=== PATIENT | female | born 1970 | race Caucasian/White ===

== ENCOUNTER 2020-04-10 20:43 | Emergency (ER) | payer BC ==
[~2020-04-10] VITALS: Ht 160 cm; Wt 99.8 kg
[2020-04-10] MEDS ORDERED: VENTOLIN HFA18 GM INH (21:17)
[2020-04-10] MEDS ORDERED: MONTELUKAST SOD10 MG PO (21:17)
[2020-04-10] MEDS ORDERED: ADVAIR 250-501 EACH INH (21:17)
[2020-04-10] MEDS ORDERED: ZYRTEC10 MG PO (21:18)
== END 2020-04-10 23:09 | disposition home or self-care (01) ==
LOC: ED 20:43
DX: S61.412A Laceration without foreign body of left hand, initial encounter (principal); W26.0XXA Contact with knife, initial encounter; I10 Essential (primary) hypertension; J45.909 Unspecified asthma, uncomplicated; Z88.0 Allergy status to penicillin; Z88.5 Allergy status to narcotic agent; Z79.899 Other long term (current) drug therapy
CPT/HCPCS: 12011; 90471; 90715; 99282-25

== ENCOUNTER 2021-09-19 14:46 | Emergency (ER) | payer BC ==
[~2021-09-19] VITALS: Ht 160 cm; Wt 95.1 kg
[~2021-09-19 14:46] MED LIST: ADVAIR 250-501 EACH INH; MONTELUKAST SOD10 MG PO; VENTOLIN HFA18 GM INH; ZYRTEC10 MG PO
--- OUTSIDE RECORDS SUMMARY | 2021-09-19 14:48 | XMS ---
PreManage Notification: ALFONSO JACK Security Parent Partner Events No recent Security Events currently on file CRITERIA MET - [facility] CARE PROVIDERS CONRADO SANTOS [facility]/[place]: Critical access hospital PHONE: [phone] MARGI VICTORAI [facility] Current PHONE: Unknown [facility] Current PHONE: Unknown Lilian has no Care Guidelines for this patient. Cong VISIT COUNT (12 MO.) 1 HOPE Banks TOTAL 1 NOTE: Visits indicate total known visits. ED/UCC VISIT TRACKING (12 MO.) 09/19/2021 14:46 [facility]OPE [facility] [place] TYPE: Emergency COMPLAINT: - BACK PAIN/ ABD PAIN INPATIENT VISIT TRACKING (12 MO.) No inpatient visits to display in this time frame [id number]
[2021-09-19] MEDS ORDERED: HYDROCHLOROTH12.5 M1 PO (17:11)
== END 2021-09-19 22:00 | disposition home or self-care (01) ==
LOC: ED 14:46
DX: M51.36 Other intervertebral disc degeneration, lumbar region (principal); R10.9 Unspecified abdominal pain; I10 Essential (primary) hypertension; J45.909 Unspecified asthma, uncomplicated; Z88.0 Allergy status to penicillin; Z88.5 Allergy status to narcotic agent; Z79.899 Other long term (current) drug therapy
CPT/HCPCS: 36415; 74177; 80053; 81001; 83690; 84703; 85025; 99284-25; A9270; J2405; Q9967

== ENCOUNTER 2022-12-30 07:03 | Day surgery (SDC) | payer BC ==
[2022-12-21 11:46] VITALS: BP 160/109
[~2022-12-30] VITALS: Ht 157.5 cm; Wt 94.0 kg
[~2022-12-30 07:03] MED LIST changes: +ESCITALOPRAM OX10 MG PO; +HYDROCHLOROTH12.5 M1 PO
[2022-12-30 07:25] VITALS: BP 149/87
--- NOTE | 2022-12-30 07:27 | NUR ---
IN ROOM. BOTH PT AND ADMIT TO NERVOUSNESS. EXERCISED MINISTRY OF PRESENCE PT TALKED OF HOW INJURY OCCURREC AND EXERCISE HAPBITS. PT AND CONSENTED TO PRAYER. PRAYED FOR SUCCESSFUL PROCEDURE AND ONGOING BLESSING.
[2022-12-30] MEDS ORDERED: PHENTERMINE H37.5 MG PO (07:28)
[2022-12-30] MEDS ORDERED: CELECOXIB200 MG PO (09:20)
[2022-12-30] MEDS ORDERED: HYDROCODON-ACE1 EA10 PO (09:21)
--- NOTE | 2022-12-30 09:25 | NUR ---
12/30/22 0925 Shanta Dawson 0920 PT TO PACU AWAKE AND TALKING. DENIES PAIN AND NAUSEA.
--- NOTE | 2022-12-30 09:54 | NUR ---
LILIANA 0950: PT IS BACK TO DS FROM PACU. SHE IS AT HER BASELINE PRIOR TO SURGERY. IS AT THE BEDSIDE. CALL LIGHT WTIHIN REACH. WATER ON BEDSIDE TABLE, SHE HAS BEEN SIPPING ON WATER SINCE PACU. SHE WOULD LIKE A BANANA. NO ADDITIONAL NEEDS OR CONCERNS. DC CRITERIA IS REVIEWED WITH PT AND PATEL.
--- NOTE | 2022-12-30 10:17 | OR ---
[facility] [address], [place] [address] Signed DATE OF OPERATION: 12/30/2022 SURGEON: Alayna Dawson MD PREOPERATIVE DIAGNOSIS: Medial meniscus tear, left knee. POSTOPERATIVE DIAGNOSIS: Medial meniscus tear, left knee. PROCEDURE PERFORMED: Left knee arthroscopy with partial medial meniscectomy and debridement of chondral tear surface. POLICE LIEUTENANT PATROL: None. ANESTHESIA: General. BLOOD LOSS: Minimal. BRIEF HISTORY: Alfonso is a 52-year-old female with progressive worsening of pain and catching in her knee. MRI was consistent with the above. Risks and benefits of operative treatment were discussed with her and she elected to proceed. Once consent was obtained, she was taken to the operating room. After adequate anesthesia, she was placed on the operating room bed. The right leg was flexed, abducted and externally rotated on a well-padded leg chandler. The left was placed in well-padded proximal thigh leg chandler with no tourniquet. The leg was prepped and draped in a standard sterile fashion. The portal sites were injected with 0.25% Marcaine with epinephrine. Standard inferior and superolateral portals were established and the scope was introduced in the knee. ARTHROSCOPIC FINDINGS: Moderate synovitis was noted throughout the knee. The patellofemoral joint was intact. Medial and lateral gutters were clear. The ACL was intact. Lateral compartment was completely normal. 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 Grade 2 changes to the tibial side. There was a radial tear posteriorly. Electronically Signed By: ALAYNA DAWSON MD 12/30/22 1017 PATIENT NAME: ALFONSO JACK OPERATIVE REPORT DATE OF : 70 REPORT #: [id number] PHYSICIAN: ALAYNA DAWSON MD PCP: RICCARDO MANLEY MD REPORT IS CONFIDENTIAL AND NOT TO BE RELEASED WITHOUT AUTHORIZATION [facility] [address], [place] [address] Signed DESCRIPTION OF OPERATION: Standard inferomedial portal was established using spinal needle for localization. The straight biter was then used to trim the posterior tear and feather it out. This was then smoothed using shaver and all debris was evacuated. The chondral flaps on the medial femoral condyle were then removed using the shaver. The debris was again evacuated and the scope was withdrawn. Portals were closed with 3-0 nylon. The knee was injected with 60 mg of Toradol at the end of the procedure. The wounds were closed with 3-0 nylon, dressed with Adaptic, ABD and Charles wrap. She tolerated the procedure well. All sponge, needle, and instrument counts were correct. Alayna Dawson MD BA/INO /[id number] Copies: ~ Electronically Signed By: ALAYNA DAWSON MD 12/30/22 1017 PATIENT NAME: ALFONSO JACK OPERATIVE REPORT DATE OF : 70 REPORT #: [id number] PHYSICIAN: ALAYNA DAWSON MD PCP: RICCARDO MANLYE MD REPORT IS CONFIDENTIAL AND NOT TO BE RELEASED WITHOUT AUTHORIZATION
[2022-12-30 11:02] VITALS: BP 102/64
--- NOTE | 2022-12-30 11:04 | NUR ---
PT REPORTS THAT SHE IS FEELING BETTER, JUST SLEEPY. SHE IS TOLERATING WATER AND BANANA. SHE DENIES PAIN, JUST FEELS PRESSURE IN THAT LEFT KNEE. SHE STATES THAT SHE WOULD LIKE TO GO HOME AND SLEEP. SHE IS EDUCATED THAT ALL SHE HAS LEFT TO DO IS TO URINATE. SHE REPORTS THAT SHE FEELS LIKE SHE COULD GO.
--- NOTE | 2022-12-30 11:33 | NUR ---
LE 1105: PT IS UP OOB WITH STANDBY ASSIST TO USE THE RESTROOM. SHE IS ABLE TO AMBULATE HERSELF TO THE BATHROOM WHERE SHE VOIDS 100MLS OF URINE. LE 1110: SHE AMBULATES HERSELF BACK TO HER ROOM. SHE IS INDCATES THAT SHE REALLY WANTS TO GO HOME SO SHE CAN GO TO SLEEP. SHE IS EDUCATED ON HOW TO BEST DRESS HERSELF AND TO OPEN HER CURTAIN WHEN SHE IS READY. LE 1120: PT REPORTS THAT SHE IS FEELING NAUSEATED. SHE IS ASKED IF SHE WOULD LIKE TO LAY DOWN AND REST HERE FOR A LITTLE BIT LONGER, SHE ADMANTLY STATES SHE WANTS TO GO HOME AND THAT SHE HAS ANTINAUSEA MEDICATION AT HOME. SHE IS SENT HOME WITH AN EMESIS BAG. SHE AND HER ARE GIVEN WRITTEN AND VERBAL DC INSTRUCTIONS. THEY BOTH VERBALIZE UNDERSTANDING. QUESTIOS ARE ASKED AND ANSWERED. PT IS TAKEN TO PERSONAL VEHICLE VIA , WHERE SHE TRANSFERS HERSELF WITHOUT ISSUES.
== END 2022-12-30 11:25 | disposition home or self-care (01) ==
LOC: DS 07:03
PROVIDERS: ATTEND Specialist
PROC: 0SQD4ZZ Repair Left Knee Joint, Percutaneous Endoscopic Approach (ICD-10-PCS; principal; 2022-12-30 08:15)
DX: S83.242A Other tear of medial meniscus, current injury, left knee, initial encounter (principal); Z88.5 Allergy status to narcotic agent; Z88.0 Allergy status to penicillin; J45.909 Unspecified asthma, uncomplicated; I10 Essential (primary) hypertension
CPT/HCPCS: 01400; J0131; J0690; J1100; J1885; J2001; J2405; J2704; J3010; J3490; J7121

== ENCOUNTER 2023-08-07 09:08 | Day surgery (SDC) | payer BC ==
[2023-08-01 12:46] VITALS: BP 146/99
[~2023-08-07] VITALS: Ht 157.5 cm; Wt 100.0 kg
[~2023-08-07 09:08] MED LIST changes: +BIOTIN10000 MC1 PO; +CEFAZOLIN SODIUM 2 GM/20 ML SYR IV SCH; +CELECOXIB200 MG PO; +GABAPENTIN 600 MG TAB PO SCH; +HYDROCODON-ACE1 EA10 PO; +IBLOOD GLUCOSE TEST STRIP 1 EA TEST VI PRN; +INTRA-ARTICULAR ANALGESIC INJECTION XX SCH; +IRON325 M1 PO; +K-TAB ER20 MEQ PO; +LACTATED RINGER'S 1,000 ML IV SCH; +LIDOCAINE HCL 1% 5 ML SDV INJ ONE; +MULTIVITAMIN1 EACH PO; +NEPHPLEX RX TA1 EACH PO; +OXYCODONE HCL 5 MG TAB PO SCH; +PANTOPRAZOLE SODIUM 40 MG TABEC PO SCH; +PHENTERMINE H37.5 MG PO; +ROPIVACAINE IN 0.9% SOD CHL/PF 545 ML ELS.PMP.HR IRRIGATION SCH; +Ropivacaine HCl 20 MG/10 ML AMP ONE; +SUPER CAL-MAG1 EACH PO; +TRANEXAMIC ACID 2,000 MG in SODIUM CHLORIDE 0.9% 100 ML IV SCH; +TYLENOL325 MG PO; +VITAMIN C250 MG PO; +ondansetron HCL 4 MG TAB PO SCH
[2023-08-07 09:31] VITALS: BP 145/90
[2023-08-07] MEDS ORDERED: OMEPRAZOLE20 MG PO (09:37)
[2023-08-07] MEDS ORDERED: Ropivacaine HCl 0.5% 30 ML VIAL ONE (10:02)
[2023-08-07] MEDS ORDERED: DEXAMETHASONE SOD PHOS 4 MG/ML VIAL ONE (10:02)
[2023-08-07] MEDS ORDERED: dexmedeTOMIDine HCl 200 MCG/2 ML VIAL ONE (10:02)
[2023-08-07] MEDS ORDERED: LIDOCAINE HCL 2% 5 ML SDV ONE ×2 (10:02→10:51)
[2023-08-07] MEDS ORDERED: SODIUM CHLORIDE 0.9% 20 ML IV ONE (10:02)
[2023-08-07] MEDS ORDERED: MIDAZOLAM HCL 2 MG/2 ML VIAL ONE (10:03)
[2023-08-07] MEDS ORDERED: propofoL 200 MG/20 ML VIAL ONE ×2 (10:51→12:11)
[2023-08-07] MEDS ORDERED: KETOROLAC TROMETHAMINE 30 MG/ML VIAL ONE (10:52)
[2023-08-07] MEDS ORDERED: KETOROLAC TROMETHAMINE 30 MG/ML VIAL IV PRN (11:15)
[2023-08-07] MEDS ORDERED: OXYCODONE HCL 5 MG TAB PO PRN (11:15)
[2023-08-07] MEDS ORDERED: KETAMINE in NS 50 MG/5 ML SYR ONE (11:52)
[2023-08-07] MEDS ORDERED: TRANEXAMIC ACID 1,000 MG/10 ML AMP ONE (11:58)
[2023-08-07] MEDS ORDERED: CELECOXIB200 MG PO (12:54)
[2023-08-07] MEDS ORDERED: XARELTO10 MG PO (12:54)
[2023-08-07] MEDS ORDERED: OXYCODONE HCL5 MG PO (12:55)
[2023-08-07] MEDS ORDERED: GABAPENTIN300 MG PO (12:55)
[2023-08-07] MEDS ORDERED: TRANEXAMIC ACID IN NACL,ISO-OS 1,000 MG/100 ML PIGGYBACK IV ONE (13:15)
--- NOTE | 2023-08-07 13:45 | NUR ---
PT ARRIVES TO FROM PACU VIA STRETCHER. PT IS A&O AND REPORTS NO PAIN AT THIS TIME. PT ABLE TO SLIGHTLY WIGGLE TOES AND LIFT LEGS. SPINAL IS AT HIP LEVEL. DRESSING VISUALIZED W/SENIA CONTRERAS. ONQ PUMP @ 4, ANUPAMA HOSE, FOOT PUMPS, HEEL PROTECTORS, AND CRYO CUFF IN PLACE AT THIS TIME. PT IS ON RA W/O2 >90% AT THIS TIME, RESPIRATIONS EVEN AND UNLABORED, NO SIGNS OF DISTRESS. REPORT RECEIVED FROM SENIA CONTRERAS W/ AT BEDSIDE. PT HOB TO 45 DEGREES, PT TOLERATING SIPS OF ICE WATER WITHOUT DIFFICULTY. PT NOW ON PHONE W/SISTER AT THIS TIME, REMAINS AT BEDSIDE. CALL LIGHT WITHIN REACH, PT REPORTS NO FURTHER NEEDS AT THIS TIME.
[2023-08-07 13:47] VITALS: BP 119/77
--- NOTE | 2023-08-07 14:10 | NUR ---
IN PT ROOM D/T NEEDING MORE ICE WATER, PROVIDED. PT ALSO PLACED SANDWICH ORDER FOR LUNCH. CALLED DOWN TO DIETARY. CALL LIGHT WITHIN REACH, AT BEDSIDE, PT REPORTS NO FURTHER NEEDS AT THIS TIME.
--- NOTE | 2023-08-07 14:25 | OR ---
[facility] [address] [place], [place] [address] Signed DATE OF OPERATION: 08/07/2023 SURGEON: Alayna Dawson MD PREOPERATIVE DIAGNOSIS: Left knee degenerative joint disease. POSTOPERATIVE DIAGNOSIS: Left knee degenerative joint disease. PROCEDURE PERFORMED: Left total knee arthroplasty with Kade. PARAMEDIC RN: Stefania Perez PA-C. Stefania was present and critical for all portions of procedure. ANESTHESIA: Spinal. BLOOD LOSS: 200 mL. TOURNIQUET TIME: Zero. IMPLANTS: Annmarie Triathlon size two, 9 mm polyethylene and a 29 mm patella. BRIEF HISTORY: Alfonso is a 52-year-old female with progressive worsening of osteoarthritis in medial compartment of her knee. Nonoperative treatment was unsuccessful and she wished to proceed with total knee. Risks, benefits, and alternatives were discussed with her and she elected to proceed. DESCRIPTION OF PROCEDURE: Once consent was obtained, she was taken to the operating room. After adequate anesthesia, she was placed on the operating table with hip bump. The leg was then prepped and draped in a standard sterile fashion. The knee was approached through a standard anterior midline incision. A midvastus arthrotomy was performed and the Electronically Signed By: ALAYNA DAWSON MD 08/07/23 1425 PATIENT NAME: ALFONSO JACK OPERATIVE REPORT DATE OF : 70 REPORT #: [id number] PHYSICIAN: ALAYNA DAWSON MD PCP: RICCARDO MANLEY MD REPORT IS CONFIDENTIAL AND NOT TO BE RELEASED WITHOUT AUTHORIZATION [facility] [address], [place] [address] Signed infrapatellar fat pad was excised. The MCL was elevated as a sleeve around the posteromedial corner. Anterior horns of menisci were transected, the ACL was transected. The PCL was found to be intact. The navigation computer arrays were then placed in the medial femoral condyle and proximal tibia. The leg was registered with the computer followed by the fine anatomic points of the knee. Ligamentous testing was undertaken and the prosthesis in the computer was moved just a little bit and then the robot was brought in and the four straight cuts and two angle cuts were made with care taken to protect the patellar tendon and MCL. The bony pieces were then removed followed by any remaining osteophytes. The posterior osteophytes were removed off the femur. The trials were then positioned. Knee was taken through range of motion, went from 0 to about 110 degrees. The patella was cut sized and drilled for a 29 mm patella. It tracked nicely. The femoral drill holes were made and the proximal tibia was finished using the keel punch and then the trials were removed. The drill holes were made in the proximal tibia as well. The prosthesis was obtained and the tibia was impacted until it was seated and flushed. The polyethylene was snapped into position and the femur was impacted. The knee was extended and loaded. The patella was clamped into position until it was flushed. The final range of motion was 0 to 110 degrees. Patella tracked well. Periarticular soft tissues were injected with 100 mL of ropivacaine and Toradol mixture. The knee was then irrigated with one bottle of Surgiphor followed by normal saline. The On-Q pain pump was percutaneously placed into the adductor canal from the suprapatellar pouch. The arthrotomy was then closed using a combination of #2 Fiberwire and #2 Stratafix, 0 Stratafix for the subcutaneous tissue and 3-0 for the skin. Wound was sealed with LiquiBand and Steri-Strips, Acticoat-7 dressing, ABDs and Charles wrap. She was awakened, taken to the recovery room in satisfactory condition. All sponge, needle, and instrument counts were correct. Alayna Dawson MD BA/MODL /[id number] Copies: ~ Electronically Signed By: ALAYNA DAWSON MD 08/07/23 1425 PATIENT NAME: ALFONSO JACK ANN OPERATIVE REPORT DATE OF : 70 REPORT #: [id number] PHYSICIAN: ALAYNA DAWSON MD PCP: RICCARDO MANLEY MD REPORT IS CONFIDENTIAL AND NOT TO BE RELEASED WITHOUT AUTHORIZATION
[2023-08-07 14:52] VITALS: BP 136/67
--- NOTE | 2023-08-07 14:52 | NUR ---
IN PT ROOM FOR ADMIN OF TXA (SEE EMAR). PT REMAINS A&O AND REPORTS PAIN AT 0/10 AT REST AT THIS TIME. PT REMAINS ON RA W/O2 >90% AT THIS TIME, RESPIRATIONS EVEN AND UNLABORED. VS TAKEN. SMALL DOT OF RED DRAINAGE ON DRESSING, REMAINS IN PLACE. PT REPORTS NO N/T AT THIS TIME. SPINAL HAS RESOLVED. PT TOLERATED 50% OF LUNCH WITHOUT DIFFICULTY AND CONTINUES TO TOLERATES MULTIPLE GLASSES OF ICE WATER. PT REPORTS NEED TO URINE VOID. PT SITS AT BEDSIDE AND REPORTS MINIMAL DIZZINESS. PT USES FWW TO PIVOT TO BEDSIDE COMMODE. GAIT IS STEADY AT THIS TIME. PT URINE VOIDS 900 ML OF CLEAR/YELLOW URINE. UNDERWEAR PLACED AT PT REQUEST, PT BACK TO BED W/ANUPAMA HOSE, HEEL PROTECTORS, FOOT PUMPS, AND CRYO CUFF IN PLACE. PT REPORTS PAIN 3/10, BUT TOLERABLE AFTER AMBULATION. CRYO CUFF IN PLACE POSTERIORLY AND PT CONTINUES TO DO FOOT PUMPS. CALL LIGHT WITHIN REACH, NO FURTHER NEEDS AT THIS TIME.
[2023-08-07] MEDS ORDERED: GABAPENTIN 300 MG CAP PO SCH (15:00)
[2023-08-07] MEDS ORDERED: TRANEXAMIC ACID 2,000 MG in SODIUM CHLORIDE 0.9% 100 ML IV ONE (15:00)
[2023-08-07] MEDS ORDERED: CEFAZOLIN SODIUM 2 GM/20 ML SYR IV SCH (15:00)
--- NOTE | 2023-08-07 15:08 | NUR ---
08/07/23 1507 Sheets,Sri 1300 PT ARRIVED TO PACU ON 6L VIA MASK, PT WAKES EASILY AND IS REORIENED TO PACU. PT DENIES PAIN AND NAUSEA. 1303 O2 REMOVED AND HOB INCREASED SLIGHTLY. PT REPORTS "I FEEL DRUNK." PT REPORTS SHE IS UNABLE TO MOVE HER LEGS AND SPINAL EDUCATION GIVEN. 1315 XRAY AT BEDSIDE. 1330 PT REPORTS THAT SHE THINKS SHE VOIDED. SECOND RN AT BEDSIDE AND BED CHANGED, SMALL VOID NOTED. SPINAL EDUCATION GIVEN WITH RELATION TO HER BLADDER. PT CONTINUES TO DENY PAIN AND NAUSEA. 1345 PT RETURNED TO ROOM WITH AT BEDSIDE. CRYO CUFF IN PLACE AND ON Q PUMP SET AT 4. ALL QUESTIONS ANSWERED.
--- NOTE | 2023-08-07 15:40 | NUR ---
PT OFF OF UNIT W/JUNE TO PERFORM PHYSICAL THERAPY.
[2023-08-07 16:09] VITALS: BP 142/85
--- NOTE | 2023-08-07 16:14 | NUR ---
PT ARRIVES BACK TO FLOOR AND PASSED PHYSICAL THERAPY PER JUNE W/PHYSICAL THERAPY. PT REPORTS PAIN IS 0/10 AT REST, AND TOLERABLE AT 1/10 PAIN W/MOVEMENT. PT STATES NO DIZZINESS, NAUSEA, N/T, OR SOB AT THIS TIME. NO ACUTE CHANGES FROM PREVIOUS SURGICAL DRESSING ASSESSMENT. VS TAKEN. PT REPORTS NO FURTHER NEEDS OR QUESTIONS AT THIS TIME, IN PT ROOM TO ASSIST W/GETTING DRESSED. ADRIA MORALES CALLED AND UPDATED ON PT MEETING REQUIREMENTS, VERBAL ORDER FOR DC AT THIS TIME.
--- NOTE | 2023-08-07 16:30 | NUR ---
IN PT ROOM FOR DISCHARGE EDUCATION. PT AND PT STATE VERBAL UNDERSTANDING AT THIS TIME AND NO FURTHER QUESTIONS. LIZ WRAP RE-APPLIED AT PT REQUEST. FRESH ICE WATER PROVIDED, AND FRESH ICE WATER PLACED IN CRYO CUFF AT PT REQUEST. PT OFF OF UNIT VIA WC TO PASSENGER SIDE OF 'S VEHICLE. PT STAND/PIVOTS INTO VEHICLE W/OUT DIFFICULTY AND THIS RN STANDBY ASSIST. ALL BELONGINGS IN PT POSSESSION AT THIS TIME. PT AND PT STATE NO FURTHER NEEDS AT THIS TIME.
[2023-08-07] MEDS ORDERED: SENNOSIDES 1 TAB PO SCH (21:00)
[2023-08-08] MEDS ORDERED: Rivaroxaban 10 MG TAB PO SCH (08:00)
[2023-08-12] MEDS ORDERED: CELECOXIB 200 MG CAP PO SCH (08:00)
== END 2023-08-07 16:50 | disposition home or self-care (01) ==
LOC: DS 09:08
PROVIDERS: ATTEND Specialist
PROC: 0SRB0JZ Replacement of Left Hip Joint with Synthetic Substitute, Open Approach (ICD-10-PCS; principal; 2023-08-07 11:35)
DX: M17.12 Unilateral primary osteoarthritis, left knee (principal); J45.909 Unspecified asthma, uncomplicated; I10 Essential (primary) hypertension; Z88.5 Allergy status to narcotic agent
CPT/HCPCS: 73560; A9270; J0690; J1100; J1885; J2001; J2250; J2704; J2795; J3490; J7121; J7999

== ENCOUNTER 2025-01-28 10:40 | Emergency (ER) | payer OTHER ==
[~2025-01-28] VITALS: Ht 157.5 cm; Wt 114.7 kg
[~2025-01-28 10:40] MED LIST changes: -CEFAZOLIN SODIUM 2 GM/20 ML SYR IV SCH; -GABAPENTIN 600 MG TAB PO SCH; +GABAPENTIN300 MG PO; -IBLOOD GLUCOSE TEST STRIP 1 EA TEST VI PRN; -INTRA-ARTICULAR ANALGESIC INJECTION XX SCH; -LACTATED RINGER'S 1,000 ML IV SCH; -LIDOCAINE HCL 1% 5 ML SDV INJ ONE; +OMEPRAZOLE20 MG PO; -OXYCODONE HCL 5 MG TAB PO SCH; +OXYCODONE HCL5 MG PO; -PANTOPRAZOLE SODIUM 40 MG TABEC PO SCH; -ROPIVACAINE IN 0.9% SOD CHL/PF 545 ML ELS.PMP.HR IRRIGATION SCH; -Ropivacaine HCl 20 MG/10 ML AMP ONE; -TRANEXAMIC ACID 2,000 MG in SODIUM CHLORIDE 0.9% 100 ML IV SCH; +XARELTO10 MG PO; -ondansetron HCL 4 MG TAB PO SCH
--- OUTSIDE RECORDS SUMMARY | 2025-01-28 10:41 | XMS ---
PreManage Notification: ALFONSO JACK Security Delivery Consultant Events No recent Security Events currently on file CRITERIA MET - [employer] CARE PROVIDERS -, [facility] Dentist: Semiautomatic Stitcher Operator Current [place] PHONE: [phone] [facility]/[place]: Multi-Specialty Current FAMILY PHONE: Unknown [facility]: [facility] COMMUNITY PHONE: Unknown MARGI VICTORIA [facility] Current [facility]: [facility] PHONE: Unknown Lilian has no Care Guidelines for this patient. Cong VISIT COUNT (12 MO.) 1 HOPE Banks TOTAL 1 NOTE: Visits indicate total known visits. ED/UCC VISIT TRACKING (12 MO.) 01/28/2025 10:41 HOPE Todd TYPE: Emergency COMPLAINT: - LT LEG PAIN INPATIENT VISIT TRACKING (12 MO.) 01/01/2025 08:55 [facility] John MILLARD ([place]) TYPE: Surgical Services DIAGNOSES: - Broken internal joint prosthesis, other site, initial encounter - Infection and inflammatory reaction due to other internal joint prosthesis, initial encounter - Pain in left knee - Presence of left artificial knee joint - Presence of unspecified artificial knee joint 08/12/2024 07:40 [facility] John MILLARD ([place]) TYPE: Surgical Services DIAGNOSES: - Infection and inflammatory reaction due to internal left knee prosthesis, initial encounter - Other chronic pain - Pain in left knee - Presence of left artificial knee joint - Unspecified abnormal finding in specimens from other organs, systems and tissues [id number]
[2025-01-28] MEDS ORDERED: PHENTERMINE HCL30 MG PO (11:05)
[2025-01-28] MEDS ORDERED: PROGESTERONE100 MG (11:05)
[2025-01-28] MEDS ORDERED: ESTRADIOL1 MG PO (11:05)
[2025-01-28] MEDS ORDERED: FLUTICASONE-SA1 EAC4 (11:06)
[2025-01-28] MEDS ORDERED: CEPHALEXIN500 MG (11:06)
[2025-01-28] MEDS ORDERED: DOCUSATE SODIU250 MG (11:06)
[2025-01-28 12:36] VITALS: BP 142/77
== END 2025-01-28 12:36 | disposition home or self-care (01) ==
LOC: ED 10:40
DX: G89.18 Other acute postprocedural pain (principal); M79.662 Pain in left lower leg; J45.909 Unspecified asthma, uncomplicated; I10 Essential (primary) hypertension; Z79.899 Other long term (current) drug therapy; Z79.51 Long term (current) use of inhaled steroids; Z88.0 Allergy status to penicillin; Z88.5 Allergy status to narcotic agent
CPT/HCPCS: 99283-25